=== PATIENT | female | born 1935 | race Caucasian/White ===

== ENCOUNTER 2017-12-21 15:30 | Inpatient (IN) | payer MEDICARE, BC ==
[~2017-12-21] VITALS: Ht 167.6 cm; Wt 97.2 kg
[~2017-12-21 15:30] MED LIST: ANTIVERT 25MG25 MG PO; CORDARONE200 MG/TAB PO; COREG 25MG25 MG/TAB PO; COUMADIN 22.5 MG/TAB PO; COUMADIN 5MG5 MG/TAB PO; COZAAR 50MG50 MG/TAB PO; LASIX 20MG TABL20 MG PO; THERATEARS 0.60.6 ML OP; TYLENOL 325MG325 MG PO
[2017-12-21 16:08] VITALS: BP 105/40; PULSE 55; TEMP 98.4
[2017-12-21 16:47] LABS: BASO # 0.1 (0.0-0.2); BASO % 0.4 % (0.0-2.0); EOS # 0.1 (0.0-0.7); EOS % 0.4 % (0-4.0); GRAN # 10.7 (1.4-6.5); GRAN % 79.3 % (42.2-75.2); HEMATOCRIT 37.2 % (37.0-47.0); HEMOGLOBIN 12.2 g/dl (12.5-16.0); LYMPH # 1.1 (1.2-3.4); LYMPH % 8.3 % (20.0-51.0); MEAN CELL VOLUME 94 fl (80.0-100.0); MEAN CORPUSCULAR HEMOGLOBIN 31 pg (27.0-31.0); MEAN CORPUSCULAR HGB CONC 33 g/dl (33.0-37.0); MEAN PLATELET VOLUME 12.4 fl (7.4-10.4); MONO # 1.5 (0.1-0.6); PLATELET COUNT 216 K/mm3 (130-400); RED BLOOD COUNT 3.95 M/mm3 (4.10-5.30)
[2017-12-21 16:50] LABS: INR 1.5 (0.8-3.0); PROTHROMBIN TIME 16.7 SECONDS (9.7-12.8)
[2017-12-21] MEDS ORDERED: ELIQUIS 5MG PO (16:50)
[2017-12-21 17:01] LABS: ALBUMIN 2.7 gm/dL (3.5-5.0); BILIRUBIN,TOTAL 1.7 mg/dL (0.0-1.0); CALCIUM 8.1 mg/dL (8.4-10.2); CREATININE, serum 1.67 mg/dL (0.52-1.25); POTASSIUM 3.7 mmol/L (3.4-5.0); TOTAL PROTEIN 6.4 gm/dL (6.4-8.2)
[2017-12-21 17:08] LABS: PRE ALBUMIN 9.3 mg/dL (17.6-36.0)
[2017-12-21] MEDS ORDERED: BUMEX 1MG TA1 MG/TA1 PO ×2 (17:10→17:13)
[2017-12-21] MEDS ORDERED: ZOLOFT 25MG25 MG PO (17:15)
[2017-12-21] MEDS ORDERED: LANOXIN 0.120.125 MG PO (17:16)
[2017-12-21 17:49] LABS: COLLECTION METHOD CATHETER
[2017-12-21 18:02] LABS: MUCOUS Present /lpf; PH 5 (5-8); SQUAMOUS EPITHELIAL None Seen /hpf; URINE APPEARANCE Clear; URINE BACTERIA None Seen /hpf; URINE BILIRUBIN Negative (NEGATIVE); URINE BLOOD 1+ (NEGATIVE); URINE COLOR Amber; URINE GLUCOSE Negative (NEGATIVE); URINE KETONE Negative (NEGATIVE); URINE LEUKOCYTE ESTERASE Negative (NEGATIVE); URINE NITRATE Negative (NEGATIVE); URINE PROTEIN(semi-quant) 1+ (NEGATIVE); URINE UROBILINOGEN >=4.0 mg/dL (NEGATIVE)
[2017-12-21 21:32] VITALS: BP 101/53; PULSE 51; TEMP 98.5
[2017-12-22] VITALS (12 sets, daily range): BP systolic 96–150; BP diastolic 43–70; PULSE 55–112; TEMP 97.2–98.5
[2017-12-22 07:25] LABS: BASO # 0.1 (0.0-0.2); BASO % 0.5 % (0.0-2.0); EOS # 0.3 (0.0-0.7); EOS % 2.3 % (0-4.0); GRAN # 9.9 (1.4-6.5); GRAN % 75.7 % (42.2-75.2); HEMOGLOBIN 12.3 g/dl (12.5-16.0); LYMPH # 1.4 (1.2-3.4); LYMPH % 10.3 % (20.0-51.0); MEAN CELL VOLUME 92 fl (80.0-100.0); MEAN CORPUSCULAR HEMOGLOBIN 31 pg (27.0-31.0); MEAN CORPUSCULAR HGB CONC 34 g/dl (33.0-37.0); MEAN PLATELET VOLUME 12.8 fl (7.4-10.4); MONO # 1.4 (0.1-0.6); MONO % 10.5 % (1.7-9.3); PLATELET COUNT 216 K/mm3 (130-400); REDCELL DISTRIBUTION WIDTH-CV 15.9 % (11.5-14.5)
[2017-12-22 07:29] LABS: HEMATOCRIT 36.7 % (37.0-47.0)
[2017-12-22 14:38] LABS: PERITONEAL -POLYMORPHONUCLEAR 1.9 % (0-25); PERITONEAL FLUID RBC 0 /mm3 (0-0)
[2017-12-22 16:27] LABS: ALBUMIN 2.6 gm/dL (3.5-5.0); BILIRUBIN,TOTAL 1.6 mg/dL (0.0-1.0); CALCIUM 8.5 mg/dL (8.4-10.2); CREATININE, serum 1.49 mg/dL (0.52-1.25); TOTAL PROTEIN 6.2 gm/dL (6.4-8.2)
[2017-12-23] VITALS (9 sets, daily range): BP systolic 91–127; BP diastolic 33–60; PULSE 53–63; TEMP 97.2–98.5
[2017-12-23 06:46] LABS: BASO % 0.1 % (0.0-2.0); GRAN # 13.3 (1.4-6.5); GRAN % 84.8 % (42.2-75.2); HEMATOCRIT 34.9 % (37.0-47.0); HEMOGLOBIN 11.1 g/dl (12.5-16.0); LYMPH # 0.8 (1.2-3.4); MEAN CELL VOLUME 96 fl (80.0-100.0); MEAN CORPUSCULAR HEMOGLOBIN 31 pg (27.0-31.0); MEAN CORPUSCULAR HGB CONC 32 g/dl (33.0-37.0); MEAN PLATELET VOLUME 12.7 fl (7.4-10.4); MONO # 1.5 (0.1-0.6); MONO % 9.3 % (1.7-9.3); PLATELET COUNT 203 K/mm3 (130-400); RED BLOOD COUNT 3.62 M/mm3 (4.10-5.30); REDCELL DISTRIBUTION WIDTH-CV 16.2 % (11.5-14.5)
[2017-12-23 07:28] LABS: CALCIUM 8.1 mg/dL (8.4-10.2); CREATININE, serum 1.66 mg/dL (0.52-1.25); POTASSIUM 4.3 mmol/L (3.4-5.0)
[2017-12-23 21:53] LABS: CREATININE, serum 1.89 mg/dL (0.52-1.25)
[2017-12-24] VITALS (7 sets, daily range): BP systolic 83–107; BP diastolic 41–52; PULSE 56–62; TEMP 97.7–98.5
[2017-12-24 05:37] LABS: HEMOGLOBIN 11.8 g/dl (12.5-16.0); MEAN CELL VOLUME 96 fl (80.0-100.0); MEAN CORPUSCULAR HEMOGLOBIN 31 pg (27.0-31.0); MEAN CORPUSCULAR HGB CONC 32 g/dl (33.0-37.0); MEAN PLATELET VOLUME 12.9 fl (7.4-10.4); PLATELET COUNT 224 K/mm3 (130-400); RED BLOOD COUNT 3.86 M/mm3 (4.10-5.30); REDCELL DISTRIBUTION WIDTH-CV 16.4 % (11.5-14.5)
[2017-12-24 05:39] LABS: HEMATOCRIT 36.9 % (37.0-47.0)
[2017-12-24 05:55] LABS: CALCIUM 8.4 mg/dL (8.4-10.2); CREATININE, serum 2.17 mg/dL (0.52-1.25); POTASSIUM 4.1 mmol/L (3.4-5.0)
[2017-12-24 06:46] LABS: BAND 15 % (0-10); LYMPHOCYTE 12 % (20.0-51.0); NEUTROPHILS 65 % (42.0-75.2); PLATELET ESTIMATE NORMAL (NORMAL)
[2017-12-24 14:12] LABS: URINE PROTEIN:CREAT RATIO 0.49 (0.00-0.14)
[2017-12-25 00:10] VITALS: BP 98/50; PULSE 54; TEMP 97.9
[2017-12-25 04:23] VITALS: BP 106/48; PULSE 53; TEMP 97.8
[2017-12-25 06:38] LABS: BASO % 0.2 % (0.0-2.0); EOS # 0.3 (0.0-0.7); EOS % 2.4 % (0-4.0); GRAN # 7.7 (1.4-6.5); GRAN % 75.3 % (42.2-75.2); LYMPH # 1.2 (1.2-3.4); LYMPH % 11.7 % (20.0-51.0); MEAN CELL VOLUME 97 fl (80.0-100.0); MEAN CORPUSCULAR HGB CONC 32 g/dl (33.0-37.0); MEAN PLATELET VOLUME 12.9 fl (7.4-10.4); PLATELET COUNT 176 K/mm3 (130-400); RED BLOOD COUNT 3.17 M/mm3 (4.10-5.30); REDCELL DISTRIBUTION WIDTH-CV 16.6 % (11.5-14.5)
[2017-12-25 07:05] LABS: ALBUMIN 2.2 gm/dL (3.5-5.0); BILIRUBIN,TOTAL 1.2 mg/dL (0.0-1.0); CALCIUM 8.3 mg/dL (8.4-10.2); CREATININE, serum 2.7 mg/dL (0.52-1.25); POTASSIUM 4.1 mmol/L (3.4-5.0); TOTAL PROTEIN 5.3 gm/dL (6.4-8.2)
[2017-12-25 07:43] VITALS: BP 96/41; PULSE 53; TEMP 97.3
[2017-12-25 07:52] LABS: HEMATOCRIT 30.6 % (37.0-47.0); MEAN CORPUSCULAR HEMOGLOBIN 31 pg (27.0-31.0)
[2017-12-25 07:54] LABS: HEMOGLOBIN 9.8 g/dl (12.5-16.0)
[2017-12-25 12:09] VITALS: BP 90/31; PULSE 53; TEMP 97.8
[2017-12-25 16:05] VITALS: BP 89/40; PULSE 56; TEMP 97.9
[2017-12-25 20:30] VITALS: BP 101/60; PULSE 54; TEMP 97.5
[2017-12-26 00:22] VITALS: BP 89/49; PULSE 56; TEMP 98
[2017-12-26 04:32] VITALS: BP 97/35; PULSE 58; TEMP 97.2
[2017-12-26 08:00] VITALS: BP 113/44; PULSE 65; TEMP 98.6
[2017-12-26 11:30] LABS: BASO % 0.2 % (0.0-2.0); EOS # 0.3 (0.0-0.7); GRAN # 10.3 (1.4-6.5); GRAN % 77.7 % (42.2-75.2); HEMOGLOBIN 10.3 g/dl (12.5-16.0); LYMPH # 1.3 (1.2-3.4); LYMPH % 10.1 % (20.0-51.0); MEAN CELL VOLUME 94 fl (80.0-100.0); MEAN CORPUSCULAR HEMOGLOBIN 31 pg (27.0-31.0); MEAN CORPUSCULAR HGB CONC 32 g/dl (33.0-37.0); MEAN PLATELET VOLUME 12.1 fl (7.4-10.4); MONO # 1.3 (0.1-0.6); MONO % 9.4 % (1.7-9.3); PLATELET COUNT 201 K/mm3 (130-400); RED BLOOD COUNT 3.37 M/mm3 (4.10-5.30); REDCELL DISTRIBUTION WIDTH-CV 16.8 % (11.5-14.5)
[2017-12-26 11:35] LABS: HEMATOCRIT 31.8 % (37.0-47.0)
[2017-12-26 11:51] LABS: ALBUMIN 2.2 gm/dL (3.5-5.0); CALCIUM 8.4 mg/dL (8.4-10.2); CREATININE, serum 2.67 mg/dL (0.52-1.25); PHOSPHOROUS 3.3 mg/dL (2.5-4.5); POTASSIUM 4.3 mmol/L (3.4-5.0)
[2017-12-26 12:33] VITALS: BP 106/43; PULSE 63; TEMP 98.5
[2017-12-26 16:29] VITALS: BP 120/48; PULSE 64; TEMP 98
[2017-12-26 20:30] VITALS: BP 111/41; PULSE 62; TEMP 97.7
[2017-12-27 00:31] VITALS: BP 101/44; PULSE 57; TEMP 98.2
[2017-12-27 03:47] VITALS: BP 110/65; PULSE 55; TEMP 98.1
[2017-12-27 07:47] LABS: BASO % 0.3 % (0.0-2.0); EOS # 0.3 (0.0-0.7); EOS % 1.9 % (0-4.0); GRAN # 11.5 (1.4-6.5); GRAN % 76.8 % (42.2-75.2); LYMPH # 1.7 (1.2-3.4); LYMPH % 11.3 % (20.0-51.0); MEAN CELL VOLUME 94 fl (80.0-100.0); MEAN CORPUSCULAR HEMOGLOBIN 31 pg (27.0-31.0); MEAN CORPUSCULAR HGB CONC 33 g/dl (33.0-37.0); MEAN PLATELET VOLUME 12.2 fl (7.4-10.4); MONO # 1.3 (0.1-0.6); PLATELET COUNT 183 K/mm3 (130-400); RED BLOOD COUNT 3.55 M/mm3 (4.10-5.30); REDCELL DISTRIBUTION WIDTH-CV 16.9 % (11.5-14.5)
[2017-12-27 07:48] LABS: HEMATOCRIT 33.3 % (37.0-47.0)
[2017-12-27 07:50] VITALS: BP 112/43; PULSE 50; TEMP 97.3
[2017-12-27 09:15] LABS: ALBUMIN 2.2 gm/dL (3.5-5.0); CALCIUM 8.6 mg/dL (8.4-10.2); CREATININE, serum 2.55 mg/dL (0.52-1.25); PHOSPHOROUS 3.3 mg/dL (2.5-4.5); POTASSIUM 4.4 mmol/L (3.4-5.0)
[2017-12-27 11:17] VITALS: BP 93/43; PULSE 54; TEMP 96.3
[2017-12-27 15:06] VITALS: BP 112/43; PULSE 54; TEMP 98.1
[2017-12-28 02:48] VITALS: BP 130/56; PULSE 74; TEMP 98.6
[2017-12-28 07:00] VITALS: BP 101/65; PULSE 60; TEMP 97.9
[2017-12-28 07:47] LABS: HEMOGLOBIN 11.8 g/dl (12.5-16.0); MEAN CELL VOLUME 92 fl (80.0-100.0); MEAN CORPUSCULAR HEMOGLOBIN 31 pg (27.0-31.0); MEAN CORPUSCULAR HGB CONC 33 g/dl (33.0-37.0); PLATELET COUNT 217 K/mm3 (130-400); RED BLOOD COUNT 3.84 M/mm3 (4.10-5.30)
[2017-12-28 07:48] LABS: HEMATOCRIT 35.5 % (37.0-47.0)
[2017-12-28 07:58] LABS: ALBUMIN 2.2 gm/dL (3.5-5.0); CALCIUM 8.7 mg/dL (8.4-10.2); CREATININE, serum 2.38 mg/dL (0.52-1.25); PHOSPHOROUS 3.2 mg/dL (2.5-4.5); POTASSIUM 4.6 mmol/L (3.4-5.0)
[2017-12-28 10:18] LABS: BAND 10 % (0-10); EOSINOPHIL 2 % (0-4); LYMPHOCYTE 14 % (20.0-51.0); NEUTROPHILS 70 % (42.0-75.2)
[2017-12-28 11:23] VITALS: BP 106/49; PULSE 61; TEMP 97.5
== END 2017-12-28 15:35 | disposition swing bed (61) | DRG 480 ==
LOC: SURG 15:30
PROVIDERS: Hospitalist; Internal Medicine Nephrology; Orthopaedic Surgery; Orthopaedic Surgery Sports Medicine; Physician Assistant
PROC: 0W9G3ZZ Drainage of Peritoneal Cavity, Percutaneous Approach (ICD-10-PCS; 2017-12-22)
PROC: 0QSC04Z Reposition Left Lower Femur with Internal Fixation Device, Open Approach (ICD-10-PCS; principal; 2017-12-22 15:30)
DX: S72.402A Unspecified fracture of lower end of left femur, initial encounter for closed fracture (principal); J69.0 Pneumonitis due to inhalation of food and vomit; M97.12XA Periprosthetic fracture around internal prosthetic left knee joint, initial encounter; E87.1 Hypo-osmolality and hyponatremia; Z66 Do not resuscitate; N17.9 Acute kidney failure, unspecified; E44.0 Moderate protein-calorie malnutrition; I50.32 Chronic diastolic (congestive) heart failure; R18.8 Other ascites; J90 Pleural effusion, not elsewhere classified; S42.202K Unspecified fracture of upper end of left humerus, subsequent encounter for fracture with nonunion; N18.3 Chronic kidney disease, stage 3 (moderate); Z68.33 Body mass index [BMI] 33.0-33.9, adult; E78.5 Hyperlipidemia, unspecified; I48.91 Unspecified atrial fibrillation; Z79.01 Long term (current) use of anticoagulants; D75.1 Secondary polycythemia; W18.30XA Fall on same level, unspecified, initial encounter; I08.0 Rheumatic disorders of both mitral and aortic valves; D64.9 Anemia, unspecified
CPT/HCPCS: 99223-AI; 99232-AI; 99233-AI; 99239; A9284; C1713; C1776; J1100; J1650; J1956; J2270; J2405; J2704; J3010; J7030; J7050; J7120; P9047